=== PATIENT | male | born 1970 | race African-American/Black ===

== ENCOUNTER 2016-06-23 22:19 | Emergency (ER) | payer OTHER ==
[~2016-06-23] VITALS: Ht 177.8 cm; Wt 80.9 kg
[2016-06-23] MEDS ORDERED: BACITRACIN ZINC OINT UDPKT TOP ONE (23:15)
[2016-06-23] MEDS ORDERED: HYDROCODONE/ACETAMINOPHEN 5/325MG TABLET PO ONE (23:15)
[2016-06-23] MEDS ORDERED: TETANUS, DIPHTHERIA, PERTUSSIS VAC/PF 0.5ML (>7YR OLD) IM ONE (23:15)
[2016-06-24 01:25] VITALS: BP 128/84
== END 2016-06-24 02:00 | disposition home or self-care (01) ==
LOC: ER 22:20
DX: S09.90XA Unspecified injury of head, initial encounter (principal); F17.200 Nicotine dependence, unspecified, uncomplicated; F12.10 Cannabis abuse, uncomplicated; S00.83XA Contusion of other part of head, initial encounter; Y08.89XA Assault by other specified means, initial encounter; Y99.9 Unspecified external cause status; Y92.89 Other specified places as the place of occurrence of the external cause; Z23 Encounter for immunization
CPT/HCPCS: 70450; 70486; 71010; 73030; 90471; 90715; 99284; Z7610